=== PATIENT | male | born 1945 | race Hispanic/Latino ===

== ENCOUNTER 2017-04-13 08:40 | Emergency (ER) | payer MEDICARE ==
[2017-04-13] MEDS ORDERED: TETANUS/DIPHTHERIA TOXOID [ADULT] 0.5 ML VIAL IM ONE (09:27)
== END 2017-04-13 09:37 | disposition home or self-care (01) ==
LOC: EDH 08:40
DX: L02.213 Cutaneous abscess of chest wall (principal); E11.9 Type 2 diabetes mellitus without complications
CPT/HCPCS: 10060; 90471; 90714

== ENCOUNTER 2017-04-15 09:41 | Emergency (ER) | payer MEDICARE | END 2017-04-15 10:09 | disposition home or self-care (01) | LOC: EDH 09:41 | DX: Z48.01 Encounter for change or removal of surgical wound dressing (principal); E11.9 Type 2 diabetes mellitus without complications; Z95.818 Presence of other cardiac implants and grafts | CPT/HCPCS: 99281 ==

== ENCOUNTER 2018-09-08 07:42 | Emergency (ER) | payer MEDICARE ==
[~2018-09-08 07:42] MED LIST: AEC81 PO; ATOR20TA65 PO; BRIM5DRO OP; ERGO500014 PO; FENO160T16 PO; GLIP-196 PO; LATA2.5D2 OP; LISI-613 PO
[2018-09-08] MEDS ORDERED: LIDOCAINE HCL 1% 20 ML VIAL ONE (08:20)
== END 2018-09-08 09:45 | disposition home or self-care (01) ==
LOC: EDH 07:42
DX: L02.213 Cutaneous abscess of chest wall (principal); E11.9 Type 2 diabetes mellitus without complications; I10 Essential (primary) hypertension; E78.00 Pure hypercholesterolemia, unspecified; I25.810 Atherosclerosis of coronary artery bypass graft(s) without angina pectoris; Z95.1 Presence of aortocoronary bypass graft; Z98.890 Other specified postprocedural states
CPT/HCPCS: 10061

== ENCOUNTER 2018-09-30 12:09 | Observation (INO) | payer MEDICARE ==
[~2018-09-30] VITALS: Ht 175.3 cm; Wt 95.2 kg
[2018-09-30 12:28] LABS: BASOPHILS % (AUTO) 0.8 % (0.0-5.0); HEMATOCRIT 42.3 % (42-54); LYMPHOCYTES % (AUTO) 24.2 % (21.0-51.0); MEAN CORPUSCULAR HEMOGLOBIN 28.4 pg (27.0-33.0); MEAN CORPUSCULAR HGB CONC 32.8 g/dL (32.0-36.0); MEAN CORPUSCULAR VOLUME 86.6 fL (79-99); MONOCYTES % (AUTO) 4.9 % (3.0-13.0); NEUTROPHILS % (AUTO) 68.1 % (40.0-77.0); NUCLEATED RED BLOOD CELLS 0.1 % (0.0-0.19); PLATELET COUNT (AUTO) 172 K/uL (130-400); RED BLOOD CELL COUNT(AUTO) 4.88 MIL/uL (4.50-6.20); RED CELL DISTRIBUTION WIDTH 14.2 % (11.0-15.5); WHITE BLOOD COUNT (AUTO) 8.6 K/uL (4.8-10.8)
[2018-09-30 12:37] LABS: INR 1.03 (0.85-1.15); PARTIAL THROMBOPLASTIN TIME 25.7 SEC (26.3-35.5); PROTHROMBIN TIME 10.8 SEC (9.6-11.6)
[2018-09-30 12:41] LABS: CREATININE 1.5 mg/dL (0.5-1.5); POTASSIUM 4.3 mmol/L (3.5-5.1)
[2018-09-30 12:45] LABS: BILIRUBIN,TOTAL 0.6 mg/dL (0.2-1.0)
[2018-09-30] MEDS ORDERED: MORPHINE SULFATE 2 MG/ML 1ML SYG ONE (13:24)
[2018-09-30] MEDS ORDERED: ASPIRIN 325 MG TABLET ONE (13:24)
[2018-09-30] MEDS ORDERED: ACETAMINOPHEN 325 MG TAB PO PRN (14:45)
[2018-09-30] MEDS ORDERED: ONDANSETRON HCL 4 MG/2 ML VIAL IV PRN (14:45)
[2018-09-30] MEDS ORDERED: MORPHINE SULFATE 2 MG/ML 1ML SYG IV PRN (14:45)
[2018-09-30] MEDS ORDERED: NITROGLYCERIN 0.4 MG SL TAB SL PRN (14:45)
[2018-09-30] MEDS ORDERED: LIDOCAINE 2%-EPI 1:200,000 20 ML VIAL IJ ONE (15:48)
[2018-09-30] MEDS: INSULIN HUMULIN R 100 UNIT/ML 3ML SQ SCH ×2 (16:30→21:00)
[2018-09-30] MEDS ORDERED: FENO160T16 PO (17:28)
[2018-09-30] MEDS ORDERED: ATOR10 PO (17:28)
[2018-09-30] MEDS ORDERED: ERGO500014 PO (17:28)
[2018-09-30] MEDS ORDERED: GLIP10TA9 PO (17:28)
[2018-09-30] MEDS ORDERED: ASPI-1197 PO (17:28)
[2018-09-30] MEDS ORDERED: LISI10TA7 PO (17:28)
[2018-09-30] MEDS ORDERED: OMEP40CA37 PO (17:28)
[2018-09-30 17:53] VITALS: BP 141/71
[2018-09-30 19:50] LABS: CREATINE KINASE, TOTAL 99 U/L (21-232); MYOGLOBIN 137 ng/mL (10-92); TROPONIN I < 0.04 ng/mL (0.00-0.06)
[2018-09-30 20:00] VITALS: BP 135/73
[2018-09-30] MEDS: METOPROLOL TARTRATE 25 MG TAB PO SCH (20:08)
[2018-09-30] MEDS ORDERED: ATORVASTATIN CALCIUM 20 MG TABLET PO SCH (21:00)
[2018-09-30] MEDS ORDERED: LACTULOSE 20 GM/30 ML UDCUP PO PRN (23:30)
[2018-09-30 23:58] VITALS: BP 124/73
[2018-10-01 01:14] LABS: CREATINE KINASE, TOTAL 123 U/L (21-232); MYOGLOBIN 126 ng/mL (10-92); TROPONIN I < 0.04 ng/mL (0.00-0.06)
[2018-10-01 04:00] VITALS: BP 132/69
[2018-10-01] MEDS: INSULIN HUMULIN R 100 UNIT/ML 3ML SQ SCH ×4 (06:34→20:21)
[2018-10-01 07:00] LABS: CREATINE KINASE, TOTAL 83 U/L (21-232); MYOGLOBIN 119 ng/mL (10-92); TROPONIN I < 0.04 ng/mL (0.00-0.06)
[2018-10-01 08:20] VITALS: BP 130/57
[2018-10-01] MEDS: METOPROLOL TARTRATE 25 MG TAB PO SCH ×2 (08:30→19:35)
[2018-10-01] MEDS: PANTOPRAZOLE SODIUM 40 MG TABLET.DR PO SCH (08:30)
[2018-10-01] MEDS: FENOFIBRATE NANOCRYSTALLIZED 145 MG TAB PO SCH (08:31)
[2018-10-01] MEDS: LISINOPRIL 10 MG TABLET PO SCH (08:31)
[2018-10-01] MEDS: GLIPIZIDE 5 MG TABLET PO SCH (08:31)
[2018-10-01] MEDS: ASPIRIN 81MG TAB.CHEW PO SCH (08:32)
[2018-10-01] MEDS: ENOXAPARIN SODIUM 40 MG/0.4 ML SYRINGE SQ SCH (08:32)
[2018-10-01] MEDS ORDERED: ASPIRIN 325 MG TABLET PO SCH (09:00)
[2018-10-01] MEDS ORDERED: FAMOTIDINE 20MG TAB 20 MG TAB PO SCH (09:00)
[2018-10-01 13:40] VITALS: BP 119/57
--- NOTE | 2018-10-01 15:30 | NUR ---
Pt. taken for stress test.
[2018-10-01] MEDS ORDERED: REGADENOSON 0.4 MG/5 ML PF SYG IVP SCH (15:45)
--- NOTE | 2018-10-01 17:34 | NUR ---
Pt. back from stress test, pt. in stable condition, in room.
[2018-10-01 18:19] VITALS: BP 129/60
[2018-10-01 19:49] VITALS: BP 127/72
[2018-10-01] MEDS ORDERED: ATORVASTATIN CALCIUM 10 MG TABLET PO SCH (21:00)
[2018-10-02] VITALS: BP 114/52
[2018-10-02 04:00] VITALS: BP 113/62
[2018-10-02 04:04] LABS: HEMATOCRIT 39.8 % (42-54); MEAN CORPUSCULAR HEMOGLOBIN 28.7 pg (27.0-33.0); MEAN CORPUSCULAR HGB CONC 32.8 g/dL (32.0-36.0); MEAN CORPUSCULAR VOLUME 87.4 fL (79-99); NUCLEATED RED BLOOD CELLS 0.1 % (0.0-0.19); PLATELET COUNT (AUTO) 163 K/uL (130-400); RED BLOOD CELL COUNT(AUTO) 4.55 MIL/uL (4.50-6.20); RED CELL DISTRIBUTION WIDTH 14.2 % (11.0-15.5); WHITE BLOOD COUNT (AUTO) 6.8 K/uL (4.8-10.8)
[2018-10-02 04:13] LABS: CREATININE 1.5 mg/dL (0.5-1.5); POTASSIUM 3.7 mmol/L (3.5-5.1)
[2018-10-02] MEDS: INSULIN HUMULIN R 100 UNIT/ML 3ML SQ SCH ×2 (05:41→13:18)
[2018-10-02 08:32] VITALS: BP 126/73
[2018-10-02] MEDS: METOPROLOL TARTRATE 25 MG TAB PO SCH (08:47)
[2018-10-02] MEDS: PANTOPRAZOLE SODIUM 40 MG TABLET.DR PO SCH (08:47)
[2018-10-02] MEDS: FENOFIBRATE NANOCRYSTALLIZED 145 MG TAB PO SCH (08:47)
[2018-10-02] MEDS: LISINOPRIL 10 MG TABLET PO SCH (08:47)
[2018-10-02] MEDS: ASPIRIN 81MG TAB.CHEW PO SCH (08:47)
[2018-10-02] MEDS: GLIPIZIDE 5 MG TABLET PO SCH (08:47)
[2018-10-02] MEDS: ENOXAPARIN SODIUM 40 MG/0.4 ML SYRINGE SQ SCH (08:48)
[2018-10-02 11:33] VITALS: BP 120/56
[2018-10-07] MEDS ORDERED: ERGOCALCIFEROL (VITAMIN D2) 50,000 UNIT CAPSULE PO SCH (09:00)
== END 2018-10-02 14:12 | disposition home or self-care (01) ==
LOC: EDH 12:09 → EDHIP 14:35 → INTOOBSV 14:35 → 4AH 17:07
PROVIDERS: ADMIT Hospitalist; ATTEND Hospitalist
DX: R07.89 Other chest pain (principal); I12.9 Hypertensive chronic kidney disease with stage 1 through stage 4 chronic kidney disease, or unspecified chronic kidney disease; N18.3 Chronic kidney disease, stage 3 (moderate); E11.22 Type 2 diabetes mellitus with diabetic chronic kidney disease; I25.10 Atherosclerotic heart disease of native coronary artery without angina pectoris; E66.9 Obesity, unspecified; E78.2 Mixed hyperlipidemia; N52.9 Male erectile dysfunction, unspecified; Z95.1 Presence of aortocoronary bypass graft; Z95.5 Presence of coronary angioplasty implant and graft; Z79.899 Other long term (current) drug therapy
CPT/HCPCS: 12031; 36415 ×3; 71045; 78452; 80048; 80053; 82550 ×3; 82948 ×7; 83874 ×3; 84484 ×4; 85025; 85027; 85378; 85610; 85730; 93005 ×4; 93017; 96372 ×2; 99284; A9500 ×2; G0378 ×45; J1650 ×2; J1815; J2785; J3490; 96374

== ENCOUNTER 2018-10-06 08:34 | Emergency (ER) | payer MEDICARE ==
[~2018-10-06 08:34] MED LIST changes: -AEC81 PO; +ASPI-1197 PO; +ATOR10 PO; -ATOR20TA65 PO; -BRIM5DRO OP; -GLIP-196 PO; +GLIP10TA9 PO; -LATA2.5D2 OP; -LISI-613 PO; +LISI10TA7 PO; +OMEP40CA37 PO
== END 2018-10-06 09:52 | disposition home or self-care (01) ==
LOC: EDH 08:34
DX: S01.01XD Laceration without foreign body of scalp, subsequent encounter (principal); I25.10 Atherosclerotic heart disease of native coronary artery without angina pectoris; E11.9 Type 2 diabetes mellitus without complications; E78.00 Pure hypercholesterolemia, unspecified; I10 Essential (primary) hypertension; X58.XXXD Exposure to other specified factors, subsequent encounter

== ENCOUNTER 2019-01-17 11:22 | Emergency (ER) | payer MEDICARE ==
[~2019-01-17 11:22] MED LIST changes: +OMEP40CA13 PO; -OMEP40CA37 PO
[2019-01-17 11:55] LABS: HEMATOCRIT 40.9 % (42-54); LYMPHOCYTES % (AUTO) 17.1 % (21.0-51.0); MEAN CORPUSCULAR HGB CONC 33.5 g/dL (32.0-36.0); MEAN CORPUSCULAR VOLUME 86.5 fL (79-99); MONOCYTES % (AUTO) 4.8 % (3.0-13.0); NEUTROPHILS % (AUTO) 75.1 % (40.0-77.0); NUCLEATED RED BLOOD CELLS 0.1 % (0.0-0.19); PLATELET COUNT (AUTO) 173 K/uL (130-400); RED BLOOD CELL COUNT(AUTO) 4.73 MIL/uL (4.50-6.20); RED CELL DISTRIBUTION WIDTH 14.1 % (11.0-15.5); WHITE BLOOD COUNT (AUTO) 8.9 K/uL (4.8-10.8)
[2019-01-17 12:37] LABS: INR 1.05 (0.85-1.15); PARTIAL THROMBOPLASTIN TIME 22.3 SEC (26.3-35.5)
[2019-01-17 12:41] LABS: PROTHROMBIN TIME 10.8 SEC (9.6-11.6)
[2019-01-17 12:45] LABS: CREATININE 1.4 mg/dL (0.5-1.5); POTASSIUM 4.6 mmol/L (3.5-5.1)
[2019-01-17 12:50] LABS: ALBUMIN 3.7 g/dL (3.5-5.0); BILIRUBIN,TOTAL 1.3 mg/dL (0.2-1.0); TOTAL PROTEIN, SERUM 6.9 g/dL (6.0-8.3)
== END 2019-01-17 16:25 | disposition home or self-care (01) ==
LOC: EDH 11:22
DX: S29.8XXA Other specified injuries of thorax, initial encounter (principal); E11.9 Type 2 diabetes mellitus without complications; I10 Essential (primary) hypertension; E78.00 Pure hypercholesterolemia, unspecified; I25.810 Atherosclerosis of coronary artery bypass graft(s) without angina pectoris; V49.49XA Driver injured in collision with other motor vehicles in traffic accident, initial encounter; Y93.89 Activity, other specified; Y92.89 Other specified places as the place of occurrence of the external cause; Y99.8 Other external cause status
CPT/HCPCS: 36415; 71045; 71100; 80053; 82550; 82948; 84484; 85025; 85610; 85730; 93005